=== PATIENT | female | born 1985 | race Asian ===

== ENCOUNTER 2020-05-23 08:55 | Emergency (ER) | payer SELFPAY ==
--- NOTE | ~2020-05-23 | XR_ITS ---
EXAMINATION: XR hand RT min 3V EXAM DATE: 05/23/2020 09:21 INDICATION: Right 3rd, 4th digit lacerations on glass cup. TECHNIQUE: Right hand frontal, lateral and oblique projections obtained and reviewed. There is no pr ior study for comparison. FINDINGS: Right metacarpal bones are unremarkable. There are no acute fractures or dislocations marcell ntified. There is no subcutaneous gas. Soft tissue lacerations identified over 3rd and 4th fingerti ps. There is an overlying bandage. No geometric shaped foreign bodies to suggest glass fragment. IMPRESSION: 1. Right hand exam without acute osseous findings. 2. 3rd, 4th fingertip lacerations. Reviewed, dictated and finalized at location A.
[2020-05-23 08:57] VITALS: BP 120/90; PULSE 91; RESP 16; TEMP 36.8; O2SAT 100
--- NOTE | 2020-05-23 09:30 | PC.NURSE ---
LET applied per PA
--- NOTE | 2020-05-23 09:39 | ED.GENADULT ---
HPI - General Adult General Chief complaint: Wound/Laceration Stated complaint: finger laceration Time Seen by Provider: 05/23/20 08:59 Source: patient Mode of arrival: ambulatory Limitations: no limitations History of Present Illness HPI narrative: Patient is a 34-year-old female who presents to emergency department for evaluation of third and fourth finger wounds that occurred while cleaning a glass and having a break patient notes skin avulsion to the ring finger and small laceration on the inner aspect of the middle phalanx ulnar side. Patient notes tetanus is not up-to-date. Review of Systems Review of Systems: Narrative: CONSTITUTIONAL: Denies fever, chills, or sweats. SKIN: Skin avulsion finger laceration MUSCULOSKELETAL: Denies back pain, joint pain, or myalgia. NEUROLOGIC: Denies numbness, or weakness. Course Course Emergency Course: Patient evaluated the emergency department neurovascularly intact had closure of the laceration and the avulsion was dressed will follow with primary care felt appropriate for outpatient reevaluation Vital Signs Vital signs: Vital Signs Temperature 98.2 F 05/23/20 08:57 Pulse Rate 91 05/23/20 08:57 Respiratory Rate 16 05/23/20 08:57 Blood Pressure 120/90 05/23/20 08:57 Pulse Oximetry 100 05/23/20 08:57 Temperature 98.2 F 05/23/20 08:57 Pulse Rate 91 05/23/20 08:57 Respiratory Rate 16 05/23/20 08:57 Blood Pressure 120/90 05/23/20 08:57 Pulse Oximetry 100 05/23/20 08:57 Procedures Laceration Laceration 1: Date: 05/23/20 Time: 11:20 Site: upper extremity Side (If applicable): right Size (cm): 1.5 Description: linear Depth: simple, single layer Local Anesthetic: lidocaine 1% Pre-repair: wound explored, irrigated and irrigated extensively ====== Skin Level ====== Skin layer closed with: nylon Size (cm): 5-0 Number of sutures: 4 ====== Subcutaneous Layer ====== ====== Muscle Layer ====== ====== Tendon Layer ====== Other Procedure Procedure 1: Other Procedure: Skin avulsion on the ring finger was cleaned with soap scrub anesthetized with let. Patient had antibiotic ointment nonadhesive 4 x 4 and Coban placed. Medical Decision Making MDM Narrative Medical decision making narrative: Patients injury or pain is consistent with musculoskeletal etiology. No signs of neurological or vascular compromise on exam. Compartments and tisues are soft without signs of compartment syndrome. Pain is felt appropriate for further evaluation on an outpatient basis. Vital Signs Vital Signs: Vital Signs Temperature 98.2 F 05/23/20 08:57 Pulse Rate 91 05/23/20 08:57 Respiratory Rate 16 05/23/20 08:57 Blood Pressure 120/90 05/23/20 08:57 Pulse Oximetry 100 05/23/20 08:57 Temperature 98.2 F 05/23/20 08:57 Pulse Rate 91 05/23/20 08:57 Respiratory Rate 16 05/23/20 08:57 Blood Pressure 120/90 05/23/20 08:57 Pulse Oximetry 100 05/23/20 08:57 Discharge Plan Discharge Clinical Impression: Laceration, Avulsion of skin Patient Disposition: Home, Self-Care Condition: Stable Instructions: Antibiotic Form, Laceration (ED) Additional Instructions: Keep wound clean and dry. Do not soak, take baths, or swim until wound is completely healed. If any signs of infection such as redness, swelling, increasing pain, drainage of purulent discharge, streaks up your extremity develop, seek medical attention immediately. Followup with your primary care provider in [7] days for suture removal. [] Follow-up/Referrals: PHYSICIAN,DISTRICT OR DISTRICT OFFICE DIRECTOR [Primary Care Provider] -
[2020-05-23 11:30] VITALS: BP 118/95; PULSE 90; RESP 14; O2SAT 100
--- NOTE | 2020-05-23 11:42 | PC.NURSE ---
Per ERP via verbal order readback. Do not give the teatnus shot.
== END 2020-05-23 11:35 | disposition home or self-care (01) ==
PROVIDERS: Emergency Provider Emergency Medicine
DX: S61.212A Laceration without foreign body of right middle finger without damage to nail, initial encounter (principal); S61.214A Laceration without foreign body of right ring finger without damage to nail, initial encounter; W25.XXXA Contact with sharp glass, initial encounter
CPT/HCPCS: 12001; 73130; 99283